=== PATIENT | male | born 1995 | race Caucasian/White ===

== ENCOUNTER 2018-05-15 14:47 | Emergency (ER) | payer OTHER ==
--- NOTE | 2018-05-15 14:54 | ER Report ---
History and Physical Time Seen By MD: 14:55 Hx. of Stated Complaint: SOB FOR 2 HOURS. INHALER RAN OUT. AUDIBLE WEEZING HPI/ROS CHIEF COMPLAINT: Shortness of breath HISTORY OF PRESENT ILLNESS: This is a 23-year-old male who presents to the emergency department for shortness of breath. Patient states he was hunting today, became short of breath, tried his albuterol inhaler, which had about a half puff left, did have some improvement. But still having some shortness of breath. Decided to come in for further evaluation. Patient does arrive with audible wheezing. Denies nausea or vomiting. No chest pain. No recent fevers or chills. REVIEW OF SYSTEMS: Constitutional: No fever, no chills. Eyes: No discharge. ENT: No sore throat. Cardiovascular: No chest pain, no palpitations. Respiratory: As above. Gastrointestinal: No abdominal pain, no vomiting. Genitourinary: No hematuria. Musculoskeletal: No back pain. Skin: No rashes. Neurological: No headache. Allergies: Coded Allergies: No Known Drug Allergies (Unverified , 05/15/18) Home Meds Active Scripts Prednisone (PREDNISONE) 20 Mg Tablet, 20 MG PO BID for 3 Days, #6 TAB 0 Refills Prov:NIYAH MURPHY- 05/15/18 Albuterol Sulfate 90 Mcg/Act (PROAIR HFA 90 MCG/ACT) 8.5 Gm Hfa.aer.ad, 2 PUFF IH Q4-6H PRN for prn, #1 INHALER 0 Refills Prov:NIYAH MURPHY- 05/15/18 Past Medical/Surgical History The patient has a past medical and surgical history of asthma. Reviewed Nurses Notes: Yes Constitutional Vital Sign - Last 24 Hours 05/15/18 05/15/18 05/15/18 05/15/18 14:51 14:55 15:00 15:02 Temp 98.7 Pulse 93 93 Resp 20 17 B/P (MAP) 130/87 130/87 (101) 130/93 (105) Pulse Ox 96 97 O2 Delivery Room Air 05/15/18 05/15/18 05/15/18 05/15/18 15:03 15:03 15:17 15:30 Pulse 89 84 Resp 17 19 B/P (MAP) 123/83 (96) Pulse Ox 97 96 O2 Delivery Room Air 05/15/18 05/15/18 05/15/18 15:32 15:37 15:52 Pulse ??? 82 83 Resp 13 11 Pulse Ox 96 97 97 Physical Exam General Appearance: The patient is alert, has no immediate need for airway protection and no signs of toxicity, audible wheezing. Eyes: Pupils equal and round no pallor or injection. ENT, Mouth: Mucous membranes are moist. Respiratory: Inspiratory and expiratory wheezing throughout, diminished throughout. Cardiovascular: Regular rate and rhythm, no murmurs, clicks or rubs. Gastrointestinal: Abdomen is soft and non tender, no masses, bowel sounds normal. Neurological: Alert and oriented 4. Moving all extremities. Following all commands. No focal neurologic deficits. Skin: Warm and dry, no rashes. Musculoskeletal: Neck is supple non tender. Extremities are nontender, nonswollen and have full range of motion. DIFFERENTIAL DIAGNOSIS: After history and physical exam differential diagnosis was considered for shortness of breath including but not limited to pulmonary infectious process, COPD, asthma, pulmonary embolus and congestive heart cece lure. Medical Decision Making Data Points Result Diagram: 05/15/18 1457 05/15/18 1457 Laboratory Hematology Test 05/15/18 14:57 Red Blood Count 5.44 M/uL (4.00-5.60) Mean Corpuscular Volume 84.9 fL (80.0-96.0) Mean Corpuscular Hemoglobin 29.7 pg (26.0-33.0) Mean Corpuscular Hemoglobin Concent 35.0 g/dL (32.0-36.0) Red Cell Distribution Width 12.8 % (11.5-14.5) Mean Platelet Volume 7.5 fL (7.2-11.1) Neutrophils (%) (Auto) 60.5 % (39.4-72.5) Lymphocytes (%) (Auto) 25.6 % (17.6-49.6) Monocytes (%) (Auto) 7.8 % (4.1-12.4) Eosinophils (%) (Auto) 5.3 % (0.4-6.7) Basophils (%) (Auto) 0.8 % (0.3-1.4) Nucleated RBC Relative Count (auto) 0.1 /100WBC Neutrophils # (Auto) 7.0 K/uL (2.0-7.4) Lymphocytes # (Auto) 2.9 K/uL (1.3-3.6) Monocytes # (Auto) 0.9 K/uL (0.3-1.0) Eosinophils # (Auto) 0.6 K/uL (0.0-0.5) Basophils # (Auto) 0.1 K/uL (0.0-0.1) Nucleated RBC Absolute Count (auto) 0.01 K/uL Sodium Level 143 mmol/L (137-145) Potassium Level 3.9 mmol/L (3.5-5.0) Chloride Level 104 mmol/L (98-107) Carbon Dioxide Level 24 mmol/L (22-30) Blood Urea Nitrogen 14 mg/dl (9-21) Creatinine 1.00 mg/dl (0.66-1.25) Glomerular Filtration Rate Calc > 60.0 Random Glucose 84 mg/dl (75-110) Calcium Level 9.8 mg/dl (8.4-10.2) Total Bilirubin 1.0 mg/dl (0.2-1.3) Aspartate Amino Transf (AST/SGOT) 33 U/L (0-35) Alanine Aminotransferase (ALT/SGPT) 41 U/L (0-56) Alkaline Phosphatase 98 U/L (0-126) Troponin I < 0.012 ng/ml Total Protein 8.4 g/dl (6.3-8.2) Albumin 5.0 g/dl (3.5-5.0) Chemistry Test 05/15/18 14:57 White Blood Count 11.5 k/uL (4.5-11.0) Red Blood Count 5.44 M/uL (4.00-5.60) Hemoglobin 16.1 g/dL (14.0-18.0) Hematocrit 46.2 % (42.0-52.0) Mean Corpuscular Volume 84.9 fL (80.0-96.0) Mean Corpuscular Hemoglobin 29.7 pg (26.0-33.0) Mean Corpuscular Hemoglobin Concent 35.0 g/dL (32.0-36.0) Red Cell Distribution Width 12.8 % (11.5-14.5) Platelet Count 244 K/uL (150-450) Mean Platelet Volume 7.5 fL (7.2-11.1) Neutrophils (%) (Auto) 60.5 % (39.4-72.5) Lymphocytes (%) (Auto) 25.6 % (17.6-49.6) Monocytes (%) (Auto) 7.8 % (4.1-12.4) Eosinophils (%) (Auto) 5.3 % (0.4-6.7) Basophils (%) (Auto) 0.8 % (0.3-1.4) Nucleated RBC Relative Count (auto) 0.1 /100WBC Neutrophils # (Auto) 7.0 K/uL (2.0-7.4) Lymphocytes # (Auto) 2.9 K/uL (1.3-3.6) Monocytes # (Auto) 0.9 K/uL (0.3-1.0) Eosinophils # (Auto) 0.6 K/uL (0.0-0.5) Basophils # (Auto) 0.1 K/uL (0.0-0.1) Nucleated RBC Absolute Count (auto) 0.01 K/uL Glomerular Filtration Rate Calc > 60.0 Calcium Level 9.8 mg/dl (8.4-10.2) Total Bilirubin 1.0 mg/dl (0.2-1.3) Aspartate Amino Transf (AST/SGOT) 33 U/L (0-35) Alanine Aminotransferase (ALT/SGPT) 41 U/L (0-56) Alkaline Phosphatase 98 U/L (0-126) Troponin I < 0.012 ng/ml Total Protein 8.4 g/dl (6.3-8.2) Albumin 5.0 g/dl (3.5-5.0) EKG/Imaging EKG Interpretation 12 lead EKG: Time of EKG 1457. Rhythm: Normal sinus rhythm, ventricular rates 81 bpm. [place]: normal QRS: normal ST segments: No ST depression or elevation identified. Imaging CHEST PA AND LAT INDICATION: RESP DISTRESS COMPARISON: None available FINDINGS: Heart size within normal limits. There is no focal infiltrate or lobar consolidation. There is no pneumothorax or pleural effusion. IMPRESSION: 1. No acute cardiopulmonary process. Report Dictated By: Carlos Lemon at 05/15/2018 4:18 PM Report E-Signed By: Carlos Lemon at 05/15/2018 4:19 PM WSN:[email or web address] ED Course/Re-evaluation Clinical Indication for ER IV: IV Access ED Course The patient was admitted to room. A history and physical were obtained. Differential diagnoses were considered. An IV was started. A CBC, CMP were obtained. Lab studies unremarkable. Negative troponin. Two-view chest x-ray negative for any acute cardiopulmonary process. I did review the laboratory studies and chest x-ray with the patient. Patient was also given a DuoNeb in the emergency department as well as heart and 25 mg IV Cipro Medrol. Patient states feeling much better. Marked improvement of the wheezing. As the patient is going back up to [facility] I did send a prescription [id number] me [facility] for albuterol MDI as well as 3 days of prednisone. The patient was encouraged to follow up with his primary care provider when he returns to [place], return to the ER for any other concerns or worsening symptoms. Patient exposed understanding and was discharged home. Decision to Disposition Date: May 15, 2018 Decision to Disposition Time: 16:26 Depart Departure Latest Vital Signs Vital Signs Date Time Temp Pulse Resp B/P (MAP) Pulse Ox O2 Delivery O2 Flow Rate FiO2 05/15/18 15:52 83 11 97 05/15/18 15:30 123/83 (96) 05/15/18 15:03 Room Air 05/15/18 14:51 98.7 Impression: Primary Impression: Asthma exacerbation Condition: Improved Disposition: HOME OR SELF-CARE New Scripts Prednisone (PREDNISONE) 20 Mg Tablet 20 MG PO BID for 3 Days, #6 TAB 0 Refills Prov: NIYAH MURPHY [employer]ING [employer]PERVISOR-BC 05/15/18 Albuterol Sulfate 90 Mcg/Act (PROAIR HFA 90 MCG/ACT) 8.5 Gm Hfa.aer.ad 2 PUFF IH Q4-6H PRN for prn, #1 INHALER 0 Refills Prov: NIYAH MURPHY [employer]ING SUPERVISOR-BC 05/15/18 Patient Instructions: Asthma (ED) Additional Instructions: Please get the prescriptions filled today so that she can take him back up to [facility]. Take the medications as prescribed. Get plenty of rest. Drink plenty of water. Return to the ER for any other concerns or worsening symptoms. Problem Qualifiers Primary Impression: Asthma exacerbation Asthma severity: mild Asthma persistence: intermittent Qualified Codes: J45.21 - Mild intermittent asthma with (acute) exacerbation NIYAH MURPHY [employer]LECTRON[employer] PROCESSING SUPERVISOR- May 15, 2018 14:54
[2018-05-15] MEDS: ALBUTEROL/IPRATROPIUM 3 ML NEB NEB SCH ×2 (15:04→15:40)
[2018-05-15 15:06] LABS: PLATELET COUNT, AUTOMATED 244 K/uL (150-450)
[2018-05-15] MEDS ORDERED: methylPREDNIS SUCC 125 MG/2ML IVP ONE (15:10)
--- NOTE | 2018-05-15 15:17 | EKG ---
FACILITY: [facility] PATIENT NAME: JUSTO MCKEON : [id number] MR: [id number] V: [id number] EXAM DATE: ORDERING PHYSICIAN: NIYAH MURPHY TECHNOLOGIST: Test Reason : Blood Pressure : / mmHG Vent. Rate : 081 BPM Atrial Rate : 081 BPM P-R Int : 114 ms QRS Dur : 098 ms QT Int : 380 ms P-R-T Axes : 062 065 050 degrees QTc Int : 441 ms Normal sinus rhythm Normal ECG No previous ECGs available Confirmed by Dutch Reeves ([id number]) on 05/15/2018 4:57:42 PM Referred By: Confirmed By:Dutch Aden
[2018-05-15 15:30] VITALS: BP 123/83
[2018-05-15] MEDS ORDERED: ALBU8.5H IH (16:00)
[2018-05-15] MEDS ORDERED: PRED20TA6 PO (16:00)
--- NOTE | 2018-05-15 16:23 | RADIOLOGY IMAGING REPORT ---
FACILITY: [facility] [place] PATIENT NAME: Escobar Troy : 1995 MR: [id number] V: [id number] EXAM DATE: ORDERING PHYSICIAN: NIYAH MURPHY TECHNOLOGIST: Location: [facility] Patient: Escobar Troy : 1995 Visit/Account:[id number] Date of Sevice: 05/15/2018 CHEST PA AND LAT INDICATION: RESP DISTRESS COMPARISON: None available FINDINGS: Heart size within normal limits. There is no focal infiltrate or lobar consolidation. There is no pneumothorax or pleural effusion. IMPRESSION: 1. No acute cardiopulmonary process. Report Dictated By: Carlos Lemon at 05/15/2018 4:18 PM Report E-Signed By: Carlos Lemon at 05/15/2018 4:19 PM WSN:[id number]
== END 2018-05-15 16:30 | disposition home or self-care (01) ==
LOC: ER 14:56
DX: J45.21 Mild intermittent asthma with (acute) exacerbation (principal)
CPT/HCPCS: 71046; 84484; 85025; 93005; 94640; 96374; 99284; J2930; J7620; 82040; 82247; 82310; 82374; 82435; 82565; 82947; 84075; 84132; 84155; 84295; 84450; 84460; 84520